=== PATIENT | male | born 1995 | race Two or more races ===

== ENCOUNTER 2025-02-18 11:00 | Emergency (ER) | payer OTHER ==
[2025-02-18] MEDS: Ketorolac 30 MG/ML SDV IM ONE (11:20)
== END 2025-02-18 13:07 | disposition home or self-care (01) ==
LOC: MW.ED 11:00
DX: S29.011A Strain of muscle and tendon of front wall of thorax, initial encounter (principal); R03.0 Elevated blood-pressure reading, without diagnosis of hypertension; Z88.0 Allergy status to penicillin; Z79.899 Other long term (current) drug therapy; M25.511 Pain in right shoulder; V49.49XA Driver injured in collision with other motor vehicles in traffic accident, initial encounter; Y93.89 Activity, other specified
CPT/HCPCS: 71250; 96372; 99284; A9270; J1885; J8540; 99283